=== PATIENT | male | born 1935 | race Caucasian/White ===

== ENCOUNTER 2016-05-25 15:00 | Inpatient (IN) | payer MEDICARE, OTHER ==
[~2016-05-25] VITALS: Ht 165.1 cm; Wt 81.6 kg
[2016-05-25 15:57] LABS: HEMOGLOBIN 9.3 gm/dl (14.0-17.5); RED BLOOD COUNT 3.08 M/UL (4.20-5.50); WHITE BLOOD COUNT 15.4 K/UL (4.5-11.0)
[2016-05-25 16:26] LABS: BUN/CREATININE RATIO 35 (0-10)
[2016-05-25] MEDS ORDERED: ARICEPT5 MG PO (18:40)
[2016-05-25] MEDS ORDERED: LISINOPRIL20 MG GT (18:42)
[2016-05-25] MEDS ORDERED: LUTEIN10 MG GT (18:43)
[2016-05-25] MEDS ORDERED: LOPRESSOR 25 MG25 MG GT (18:44)
[2016-05-25] MEDS ORDERED: PROTONIX 40 MG40 MG GT (18:45)
[2016-05-25] MEDS ORDERED: VITAMIN D32000 UNI1 GT (18:46)
[2016-05-25] MEDS ORDERED: IPRAT-ALBUT 0.5-3 ML INH (18:48)
[2016-05-25] MEDS ORDERED: CITALOPRAM HBR10 MG GT (18:49)
[2016-05-25] MEDS ORDERED: DEPAKOTE500 MG GT (18:50)
[2016-05-25] MEDS ORDERED: KLONOPIN TAB 00.5 MG PO ×2 (18:51→18:52)
[2016-05-25] MEDS ORDERED: KLONOPIN1 MG GT (18:53)
[2016-05-25] MEDS ORDERED: NORVASC 5 MG TAB5 MG GT (18:53)
[2016-05-25] MEDS ORDERED: LORTAB 5-325 M1 EACH GT ×2 (18:55→18:56)
[2016-05-26 03:41] LABS: HEMOGLOBIN 8.5 gm/dl (14.0-17.5); WHITE BLOOD COUNT 11.7 K/UL (4.5-11.0)
[2016-05-26 03:44] LABS: RED BLOOD COUNT 2.77 M/UL (4.20-5.50)
[2016-05-26 03:55] LABS: BUN/CREATININE RATIO 37 (0-10)
[2016-05-27 03:34] LABS: HEMOGLOBIN 9.9 gm/dl (14.0-17.5); WHITE BLOOD COUNT 11.6 K/UL (4.5-11.0)
[2016-05-27 03:38] LABS: RED BLOOD COUNT 3.24 M/UL (4.20-5.50)
[2016-05-27 04:02] LABS: BUN/CREATININE RATIO 18 (0-10)
[2016-05-28 03:36] LABS: HEMOGLOBIN 9.5 gm/dl (14.0-17.5); RED BLOOD COUNT 3.09 M/UL (4.20-5.50); WHITE BLOOD COUNT 10.2 K/UL (4.5-11.0)
[2016-05-28 04:01] LABS: BUN/CREATININE RATIO 25 (0-10)
== END 2016-05-28 20:00 | DRG 208 ==
LOC: ER1 15:00 → CCU 18:04
PROVIDERS: Emergency Medicine; Hospitalist; ADMIT Internal Medicine
PROC: 5A1935Z Respiratory Ventilation, Less than 24 Consecutive Hours (ICD-10-PCS; principal; 2016-05-25)
DX: J96.01 Acute respiratory failure with hypoxia (principal); E87.2 Acidosis; I10 Essential (primary) hypertension; K21.9 Gastro-esophageal reflux disease without esophagitis; F41.9 Anxiety disorder, unspecified; Z79.899 Other long term (current) drug therapy; G30.9 Alzheimer's disease, unspecified; F02.80 Dementia in other diseases classified elsewhere, unspecified severity, without behavioral disturbance, psychotic disturbance, mood disturbance, and anxiety; J44.9 Chronic obstructive pulmonary disease, unspecified; Z93.1 Gastrostomy status; R13.10 Dysphagia, unspecified; T17.990A Other foreign object in respiratory tract, part unspecified in causing asphyxiation, initial encounter; D64.89 Other specified anemias; I95.9 Hypotension, unspecified
CPT/HCPCS: ECHO; 36415; 36600; 70450; 71010; 80053; 81001; 82550; 82553; 82803; 83605; 83735; 83874; 84100; 84484; 85025; 85027; 87040; 93005; 93306; 94002; 94003; 94640; 96374; 96375; 99291; J0461; J1650; J1940; J2543; J3370; J7030; J7050